=== PATIENT | female | born 1950 | race African-American/Black ===

== ENCOUNTER 2018-07-28 20:52 | Observation (INO) | payer SELFPAY ==
[~2018-07-28] VITALS: Ht 162.6 cm; Wt 103.6 kg
[2018-07-28] MEDS ORDERED: ATOR40TA PO (21:23)
[2018-07-28] MEDS ORDERED: METO50 PO (21:23)
[2018-07-28] MEDS ORDERED: LISI20 PO (21:23)
[2018-07-28] MEDS ORDERED: ASPI325 PO (21:24)
[2018-07-28] MEDS ORDERED: IBUP800 (21:24)
[2018-07-28] MEDS ORDERED: TRAM50 PO (21:24)
[2018-07-28 21:39] LABS: BASOPHILS ABSOLUTE AUTO 0.02 K/mm3 (0.00-0.23); BASOPHILS PERCENT AUTO 0 % (0-2); EOSINOPHILS ABSOLUTE AUTO 0.29 K/mm3 (0.00-0.68); EOSINOPHILS PERCENT AUTO 4 % (0-6); Hematocrit 39.8 % (33.0-51.0); IMMATURE GRAN ABSOLUTE AUTO 0.02 K/mm3 (0.00-0.10); IMMATURE GRAN PERCENT AUTO 0 % (0-1); LYMPHOCYTES PERCENT AUTO 36 % (21-46); MONOCYTES ABSOLUTE AUTO 0.78 K/mm3 (0.16-1.47); MONOCYTES PERCENT AUTO 11 % (4-13); Mean Corpuscular HGB 32.7 pg (26.0-34.0); Mean Corpuscular HGB Conc 32.7 g/dL (31.5-36.5); Mean Corpuscular Volume 100 fL (80-100); Mean Platelet Volume 10.2 fL (9.1-12.4); NEUTROPHILS ABSOLUTE AUTO 3.54 K/mm3 (1.96-9.15); NEUTROPHILS PERCENT AUTO 49 % (41-73); Platelet Count 256 K/mm3 (150-400); RDW Coefficient Variation 11.8 % (11.7-14.2); RDW Standard Deviation 43.7 fL (35.1-46.3); Red Blood Cell Count 3.97 M/mm3 (3.80-5.20); White Blood Cell Count 7.25 K/mm3 (4.00-11.30)
[2018-07-28 22:01] LABS: Alanine Aminotransfer (ALT/SGP 27 U/L (12-78); Albumin, Blood 3.6 g/dL (3.4-5.0); Albumin/Globulin Ratio 0.8 (0.8-1.8); Alk Phos 68 U/L (50-136); Anion Gap 6 mmol/L (6-16); Aspartate Aminotrans (AST/SGOT 22 U/L (12-37); Bilirubin, Total 0.5 mg/dL (0.1-1.0); Blood Urea Nitrogen 18 mg/dL (8-24); Bun/Creatinine Ratio 16.2 (12.0-20.0); CO2, Blood 28 mmol/L (21-32); Chloride, Blood 106 mmol/L (98-108); Creatinine, Blood 1.11 mg/dL (0.40-1.00); Globulin, Blood 4.5 g/dL (2.2-4.0); Glomerular Filtration Rate 52 (60-); Glucose, Blood 111 mg/dL (70-99); Potassium, Blood 4.2 mmol/L (3.5-5.5); Sodium, Blood 140 mmol/L (136-145); Total Protein, Blood 8.1 g/dL (6.4-8.2); Troponin I <0.015 ng/mL (0.000-0.040)
--- NOTE | 2018-07-29 07:32 | NUR ---
esl, son translates but she does understands some, call light in reach, room air, saline locked, abram blood pressure remaind at level sent up by ER, npo for procedure today
--- NOTE | 2018-07-29 09:42 | NUR ---
REMOVED NITRO PATCH @ 0935 07/29/18
--- NOTE | 2018-07-29 11:35 | NUR ---
Echocardiogram completed.
--- NOTE | 2018-07-29 15:36 | NUR ---
SHIFT SUMMARY PT HAS HAD NO ACUTE CHANGES THIS SHIFT, MEDICATED 1X FOR HEADACHE & REMOVED NITRO PATCH-RESOLVED. SON HAS BEEN AT BEDSIDE T/O SHIFT, WILL CONT TO MONITOR UNTIL REPORT GIVEN TO ONCOMING RN.
--- NOTE | 2018-07-29 15:53 | NUR ---
ASSUMED CARE OF PT FROM DILSHAD Mckeon RN. PT RESTING IN BED. DOES NOT APPEAR TO BE IN ANY DISTRESS AT THIS TIME. SON AT BEDSIDE.
--- NOTE | 2018-07-29 17:31 | NUR ---
SUMMARY NO ACUTE CHANGES SINCE ASSUMING CARE OF PT. EATING DINNER. DENIES PAIN. SON AT BEDSIDE.
[2018-07-30 06:07] LABS: Albumin, Blood 3.4 g/dL (3.4-5.0); Anion Gap 6 mmol/L (6-16); Blood Urea Nitrogen 14 mg/dL (8-24); Bun/Creatinine Ratio 15.2 (12.0-20.0); CO2, Blood 27 mmol/L (21-32); Calcium, Blood 9.3 mg/dL (8.5-10.1); Chloride, Blood 108 mmol/L (98-108); Creatinine, Blood 0.92 mg/dL (0.40-1.00); Glomerular Filtration Rate >60 (60-); Glucose, Blood 93 mg/dL (70-99); Phosphorus, Blood 3.6 mg/dL (2.5-4.9); Potassium, Blood 3.9 mmol/L (3.5-5.5); Sodium, Blood 141 mmol/L (136-145)
--- NOTE | 2018-07-30 07:35 | NUR ---
SHIFT SUMMARY PT ADMITTED FOR CHEST PAIN. SHE HAS BEEN NPO AFTER MN EXCEPT FOR MEDS AND ICE CHIPS FOR HER NUC MED STUDY SCHEDULED FOR TODAY. TELE WAS NSR IN THE 60-70S. HER BP WAS ELEVATED AND THIS RN ASKED THE NIGHT HOSPITALIST IF HE WANTED TO CHANGE HER METOPROLOL BACK TO HER HOME DOSE OF 200ML BID BUT BASED ON HER HEART RATE HE DID NOT. SHE WAS NOT HIGH ENOUGH FOR THE LABETALOL. PT MEDICATED W/ TYLENOL FOR PAIN PRN. HER SON STAYED WITH HER UNTIL THE LATE EVENING. SHE APPEARED COMFORTABLE T/0 THE NIGHT. PT DENIED CHEST PAIN AND REPORTED HER SOB HAD IMPROVED A GREAT DEAL SINCE ADMISSION. REPORT PASSED TO ONCOMING SHIFT.
[2018-07-30] MEDS ORDERED: Metoprolol Tar100 MG PO (11:11)
[2018-07-30] MEDS ORDERED: ZESTORETIC 20-251 EA PO (11:12)
[2018-07-30] MEDS ORDERED: AMLO5 PO (15:37)
--- NOTE | 2018-07-30 15:52 | NUR ---
PRESCRIPTIONS CALLED PRESCRIPTIONS TO [facility].
--- NOTE | 2018-07-30 16:24 | NUR ---
DISCHARGED REVIEWED DC PAPERWORK W/PT AND SON; VERBALIZED UNDERSTANDING. DC'D IV, CATHETER INTACT. PRESCRIPTIONS CALLED IN TO [facility]. PT LEFT UNIT IN WC ACCOMPANIED BY SON W/POSSESSIONS AND DC PAPERWORK IN HAND.
== END 2018-07-30 16:21 | disposition home or self-care (01) ==
LOC: ER 20:52 → SURS 20:53
PROVIDERS: Emergency Medicine; Internal Medicine; ADMIT Hospitalist
DX: I16.0 Hypertensive urgency (principal); I11.9 Hypertensive heart disease without heart failure; E78.5 Hyperlipidemia, unspecified; E66.01 Morbid (severe) obesity due to excess calories; M19.90 Unspecified osteoarthritis, unspecified site; Z79.82 Long term (current) use of aspirin; Z79.899 Other long term (current) drug therapy; Z23 Encounter for immunization
CPT/HCPCS: 36415; 71046; 78452; 80053; 80069; 83880; 84484; 85025; 90686; 90732; 93005; 93010; 93017; 93306; 96372; 96374; 99285-25; A9500; G0008; G0009; G0378; J0706; J1650; J2785